=== PATIENT | female | born 1960 | race African-American/Black ===

== ENCOUNTER 2025-08-29 21:02 | Emergency (ER) | payer OTHER | END 2025-08-30 00:22 | disposition home or self-care (01) | LOC: CSHERS 21:02 | DX: S90.02XA Contusion of left ankle, initial encounter (principal); I25.2 Old myocardial infarction; E11.9 Type 2 diabetes mellitus without complications; I25.10 Atherosclerotic heart disease of native coronary artery without angina pectoris; W18.43XA Slipping, tripping and stumbling without falling due to stepping from one level to another, initial encounter ==